=== PATIENT | female | born 2000 ===

== ENCOUNTER 2021-02-11 10:24 | Emergency (ER) | payer OTHER | END 2021-02-11 14:40 | disposition home or self-care (01) | LOC: ER1 10:24 | DX: J06.9 Acute upper respiratory infection, unspecified (principal); Z20.822 Contact with and (suspected) exposure to COVID-19; F17.290 Nicotine dependence, other tobacco product, uncomplicated | CPT/HCPCS: 87081; 87880; 99283; U0002 ==